=== PATIENT | female | born 1945 | race Caucasian/White ===

== ENCOUNTER → 2016-12-20 | Outpatient (CLI) | payer MEDICARE, OTHER ==
[~2016-12-20] MED LIST: ACIPHEX20 MG PO; ALDACTONE25 MG PO; ASPIRIN LO-DOSE81 MG PO; CENTRUM SILVER1 TAB PO; CONTRAVE ER 8-1 EACH PO; CRESTOR5 MG PO; ESTRACE2 MG PO; GLUCOPHAGE500 MG PO; GLUCOSAMINE &1 EAC1 PO; KEFLEX250 MG PO; SUPER B-50 COM1 EAC1 PO; VITAMIN D350000 UNIT PO; [UNRECOGNIZED DRUG - OTHER] PO; [UNRECOGNIZED DRUG - OTHER] PO
== END | disposition disaster alternative care site (69) ==
LOC: LGSMG 15:05
DX: M54.40 Lumbago with sciatica, unspecified side (principal); N39.0 Urinary tract infection, site not specified